=== PATIENT | female | born 1965 | race Caucasian/White ===

== ENCOUNTER 2022-12-24 15:15 | Emergency (ER) | payer MEDICAID ==
[~2022-12-24] VITALS: Ht 170.2 cm; Wt 95.3 kg
--- NOTE | 2022-12-24 15:20 | NUR ---
[id number] C/O LOWER BACK AND BUTTOCKS AREA S/P GLF. PT STATES " MY DOG JUMPED ON ME AND I FELL BACK AND HIT MY BUTTOCKS". PT IS [id number]. CONNECTED TO MONITOR, VSS, AWAITING MD ORDERS.
--- NOTE | 2022-12-24 15:28 | NUR ---
DR. REILLY AT BEDSIDE FOR EVAL
[2022-12-24] MEDS ORDERED: OXYC5CAP18 PO ×2 (17:39→17:47)
[2022-12-24] MEDS ORDERED: NAPR-1192 PO (17:39)
[2022-12-24] MEDS ORDERED: HYDROCODONE/APAP 5/325MG TABLET ONE (17:55)
[2022-12-24] MEDS: HYDROCODONE/APAP 5/325MG TABLET PO ONE (17:58)
[2022-12-24 18:06] VITALS: BP 182/88
--- NOTE | 2022-12-24 18:07 | NUR ---
Patient discharged to home in stable condition. Written and verbal after care instructions given. Patient verbalizes understanding of instruction.
== END 2022-12-24 18:06 | disposition home or self-care (01) ==
LOC: ER 15:22
DX: S39.92XA Unspecified injury of lower back, initial encounter (principal); M53.3 Sacrococcygeal disorders, not elsewhere classified; Z79.899 Other long term (current) drug therapy; W01.0XXA Fall on same level from slipping, tripping and stumbling without subsequent striking against object, initial encounter; Y93.89 Activity, other specified; Y92.89 Other specified places as the place of occurrence of the external cause; Y99.8 Other external cause status
CPT/HCPCS: 72131-TC; 72192-TC